=== PATIENT | male | born 1955 | race Caucasian/White ===

== ENCOUNTER 2025-03-28 13:32 | Emergency (ER) | payer MEDICARE, OTHER, SELFPAY ==
[2025-03-28 13:32] VITALS: BMI 24.4
[2025-03-28 13:38] VITALS: BP 115/76
--- NOTE | 2025-03-28 13:59 | ED.GENMED ---
History of Present Illness
General
Chief Complaint: Chest Pain
Source: patient
Time Seen by Provider: 03/28/25 13:49
History of Present Illness
History of Present Illness:
The patient is a 69-year-old male who presents with chest discomfort and dizziness that began this morning while preparing to go sailing. He describes the dizziness as mild light-headedness without any sensation of the room spinning or loss of
balance, and no falls have occurred. The dizziness has been on and off for some time. He reports that during a physical examination at the end of May, a physician noted an irregularity with his heart and advised a cardiology evaluation, which has
not yet occurred. The chest discomfort is described as a dull pain across the chest, occasionally more centered, currently rated at 3-4 out of 10 in severity. The pain began at around 9:00 AM today and is not exacerbated by walking or deep
breathing. He denies any aggravating factors and states it has been stable while resting today.
Phy Exam
Physical Exam
Physical Exam:
General: Awake, Alert, Oriented X3. No acute distress.
Vitals: unremarkable
Head: Atraumatic
Eyes: Pupils equal, EOMI
Throat: Airway intact, no exudates
Neck: Trachea midline
Lungs: Clear and equal b/l
Heart: Regular rate, no murmurs
Abd: Soft, Nontender, No pulsatile mass
Neuro: Nonfocal
Skin: Warm, dry, no rash
Extremities: pulses equal b/l, no edema
Scores
Heart Score for Chest Pain Patients
STEMI patient?: No
History: Moderately Suspicious
ECG: Normal
Age: >/= 65 years
Risk Factors: No Risk Factors
Troponin: </= Normal Limit
Heart Score for Chest Pain Patients: 3
Heart Score Risk: 2.5% MACE over next 6 weeks
Course
Orders/Labs/Results
Orders:
Orders
03/28/25 13:38
EKG [Electrocardiogram (*1)] Urgent
Reason for Study: Chest Pain
EKG- Treatment ONCE
03/28/25 13:58
Cardiac Monitoring- Treatment ONCE
CR Chest - 2 Views Urgent
Comment:
Reason For Exam: chest pain
03/28/25 14:19
Complete Blood Count/With Diff Urgent
Comprehensive Metabolic Panel Urgent
Troponin I Urgent
03/28/25 16:07
Troponin I Urgent
Abnormal Lab Results
03/28/25
14:19
RBC 4.48 L 10^6/uL
(4.70-6.10)
Hct 38.8 L %
(39.0-52.0)
Lymphocytes % 18.0 L %
(20.5-51.1)
Chloride 108 H mmol/L
(98-107)
03/28/25 14:19
03/28/25 14:19
Vital Signs
Initial and Last Documented VS:
Initial Vital Signs
Temp Pulse Resp BP Pulse Ox
98.1 F 90 15 115/76 94
03/28/25 13:38 03/28/25 13:38 03/28/25 13:38 03/28/25 13:38 03/28/25 13:38
Last Documented Vital Signs
Temp Pulse Resp BP Pulse Ox
98.1 F 55 16 121/76 99
03/28/25 13:38 03/28/25 17:00 03/28/25 17:00 03/28/25 17:00 03/28/25 17:00
MDM/Problems Addressed
Differential Diagnosis Includes:
- Angina pectoris
- Myocardial infarction
- Cardiac arrhythmia
- Gastroesophageal reflux disease
- Aortic stenosis
- Pericarditis
MDM/Problems Addressed:
Patient presents with chest pain it has been present for some time but worse today. No acute EKG changes. Chest x-ray shows no acute abnormalities. Troponin negative x 2. Patient placed on chest pain hotline. Stable for discharge and close
outpatient follow-up with cardiology.
Chronic conditions affecting care: HTN
*Radiology
Radiology exam reviewed: preliminary read by ED provider (No acute abnormality my review of the patient's chest x-ray)
*Pulse Oximetry
SaO2: 100
Oxygen Mode of Delivery: Room air
Patient hypoxic: no
*EKG
Heart Rate: 65
Rate: normal
Rhythm: sinus
Harmans: normal axis
Interval: normal interval
QRS Pattern: normal QRS
Ischemia: no ischemia
*Front Desk Associate Interpretation
Rate: normal
Interpretation: normal
Rhythm: sinus
*Critical Care Note
Total Time (30-74mins, 75-104mins- exclusive of procedures): Not Applicable
ED Attending Note
-
Portions of this chart may have been created with voice recognition software.� Occasional wrong word or��sound alike� substitutions may have occurred due to the inherent limitations of voice recognition software.
Discharge Plan
Departure
Patient Disposition: Home (Routine Discharge)
Date of Disposition: 03/28/25
Time of Disposition: 17:03
Patient with high blood pressure during this ER visit?: No
Condition: Good
Discharge Problem:
Chest pain
Instructions: Chest Pain DCA Follow Up
Referrals:
Sudhakar Tovar MD [Family Provider, Family Practice]
Chapin Solis MD [Active, Cardiology]
Interventions
Interventions:
*Risk Screen - Suicide Last Done: 03/28/25 13:38
*General Assessment Last Done: 03/28/25 13:38
*Neglect/Abuse Screening Last Done: 03/28/25 13:38
*ED- Fall Risk Assessment Last Done: 03/28/25 13:47
*ED COVID-19 Vaccine History Last Done: 03/28/25 13:38
*Nursing Disposition Last Done: 03/28/25 17:16
ED- Cardiac Assessment Last Done: 03/28/25 13:47
Discharge Date and Time
Discharge Date/Time: 03/28/25 17:16
Print Language: ARABIC
[2025-03-28 14:00] VITALS: BP 115/77
[2025-03-28 14:32] LABS: % Basophils 0.3 % (0-2); % Eosinophils 2.1 % (0-6); % Immature Granulocytes 0.3 % (0-0.5); % Monocytes 6.7 % (1.7-9.3); % Neutrophils 72.6 % (42.2-75.2); Absolute Eosinophils 0.2 10^3/uL (0-0.7); Absolute Lymphocytes 1.6 10^3/uL (1.2-3.4); Absolute Monocytes 0.6 10^3/uL (0.1-0.6); Absolute Neutrophils 6.4 10^3/uL (1.4-6.5); Hematocrit 38.8 % (39.0-52.0); Mean Corp Hgb Conc. 33.5 g/dL (33.0-37.0); Mean Corpuscular Volume 86.6 fL (80.0-94.0); Mean Platelet Volume 9.3 fL (7.4-10.4); Nucleated Red Blood Cells % 0 % (-); Platelet Count 157 10^3/uL (130-400); Red Blood Cell Count 4.48 10^6/uL (4.70-6.10); Red Cell Dist. Width 13.2 % (11.5-14.5); White Blood Cell Count 8.8 10^3/uL (4.8-10.8)
[2025-03-28 14:58] LABS: ALT (SGPT) 17 U/L (0-50); AST (SGOT) 17 U/L (17-59); Albumin 4.3 g/dl (3.5-5.0); Alkaline Phosphatase 53 U/L (38-126); Blood Urea Nitrogen 19 mg/dl (9-20); Calcium 9.5 mg/dl (8.4-10.2); Carbon Dioxide 27 mmol/L (22-30); Chloride 108 mmol/L (98-107); Estimated Creatinine Clearance 80 ml/min; Glucose 84 mg/dl (70-99); Potassium 4.7 mmol/L (3.5-5.1); Sodium 140 mmol/L (135-145); Total Bilirubin 0.6 mg/dl (0.2-1.3); Total Protein 6.3 g/dl (6.3-8.2); eGFR > 60.00
[2025-03-28 15:10] LABS: Troponin I < 0.012 ng/ml
[2025-03-28 16:08] VITALS: BP 118/79
[2025-03-28 16:37] LABS: Troponin I < 0.012 ng/ml
[2025-03-28 17:00] VITALS: BP 121/76
== END 2025-03-28 17:16 | disposition home or self-care (01) ==
LOC: EMR 13:32
PROVIDERS: EMERGENCY PHYSICIAN Emergency Medicine; FAMILY PHYSICIAN Family Medicine
DX: R07.89 Other chest pain (principal); R42 Dizziness and giddiness; I10 Essential (primary) hypertension
CPT/HCPCS: 99285; 71046; 80053; 84484; 85025; 93005

== ENCOUNTER → 2025-04-20 09:42 | Outpatient (REF) | payer MEDICARE, OTHER, SELFPAY | LOC: RCS 09:42 | PROVIDERS: ATTENDING PHYSICIAN Internal Medicine Cardiovascular Disease; FAMILY PHYSICIAN Family Medicine | DX: R00.2 Palpitations (principal); R42 Dizziness and giddiness | CPT/HCPCS: 93225; 93226 ==

== ENCOUNTER → 2025-04-22 08:04 | Outpatient (REF) | payer MEDICARE, OTHER, SELFPAY | LOC: HWRCS 08:04 | PROVIDERS: ATTENDING PHYSICIAN Internal Medicine Cardiovascular Disease; FAMILY PHYSICIAN Family Medicine | DX: R00.2 Palpitations (principal); R42 Dizziness and giddiness; R07.89 Other chest pain | CPT/HCPCS: 93306 ==

== ENCOUNTER → 2025-04-23 15:10 | Outpatient (REF) | payer MEDICARE, OTHER, SELFPAY | LOC: RCS 15:10 | PROVIDERS: ATTENDING PHYSICIAN Internal Medicine Cardiovascular Disease; FAMILY PHYSICIAN Family Medicine | DX: R00.2 Palpitations (principal); R07.89 Other chest pain; R42 Dizziness and giddiness; E78.00 Pure hypercholesterolemia, unspecified | CPT/HCPCS: 93017 ==